=== PATIENT | male | born 1960 | race Caucasian/White ===

== ENCOUNTER 2017-12-01 10:30 | Emergency (ER) | payer BC ==
--- NOTE | 2017-12-02 09:11 | EDM.PDOC ---
Scribed by Yari Sow 12/02/17 0911 for Zion Forte MD ED HPI GENERAL MEDICAL PROBLEM - General Chief Complaint: ENT Problem Stated Complaint: SINUS INFECTION Time Seen by Provider: 12/01/17 10:45 Source of Information: Reports: Patient, RN, RN Notes Reviewed History Limitations: Reports: No Limitations - History of Present Illness INITIAL COMMENTS - FREE TEXT/NARRATIVE: c/o "sinus infection". Pt reports sinus pressure with intermittent drainage for about 12 weeks, but has felt like a 'sinus infection' for about one week. Denies fever or chills. Onset: Gradual Duration: Constant, Getting Worse Location: Reports: Head, Face Quality: Reports: Pressure Severity: Moderate Improves with: Reports: None Worsens with: Reports: None Associated Symptoms: Reports: No Other Symptoms Head Pain Score (Numeric/FACES): 5 - Related Data Allergies Allergy/AdvReac Type Severity Reaction Status Date / Time No Known Allergies Allergy Verified 12/01/17 10:41 Home Meds: Home Meds Thyroid,Pork [[place] Thyroid] 1 tab PO BID 12/01/17 [History] Past Medical History - Past Health History Medical/Surgical History: Denies Medical/Surgical History Social & Family History - Family History Family Medical History: Noncontributory - Living Situation & Occupation Living situation: Reports: , with Spouse Occupation: Employed ED ROS ENT - Review of Systems Review Of Systems: ROS reveals no pertinent complaints other than HPI. ED EXAM, ENT - Physical Exam Exam: See Below Exam Limited By: No Limitations General Appearance: Alert, WD/WN, No Apparent Distress Eye Exam: Bilateral Eye: Normal Inspection Ears: Normal External Exam, Normal Canal, TM Fluid (clear). No: Mastoid Tenderness, Canal Blood, Canal Discharge, Canal Swelling, TM Bulging, TM Dullness, TM Erythema, TM Blood, TM Perforation Nose: Nasal Discharge (clear and purulent), Nasal Swelling, Injected Turbinates. No: Active Bleeding Mouth/Throat: Normal Inspection, Normal Gums, Normal Lips, Normal Oropharynx ( with postnasal drip), Normal Teeth Head: Atraumatic, Normocephalic Neck: Normal Inspection, Supple, Non-Tender, Full Range of Motion. No: Lymphadenopathy (L), Lymphadenopathy (R) Respiratory/Chest: No Respiratory Distress, Lungs Clear, Normal Breath Sounds, No Accessory Muscle Use, Chest Non-Tender Cardiovascular: Regular Rate, Rhythm Neurological: Alert, Oriented, CN II-XII Intact, Normal Cognition, Normal Gait, No Motor/Sensory Deficits Psychiatric: Normal Affect, Normal Mood Skin: Warm, Dry, Intact, Normal Color, No Rash Course - Vital Signs Last Recorded V/S: Last Vital Signs Temp 37.1 C 12/01/17 10:38 Pulse 99 12/01/17 10:38 Resp 16 12/01/17 10:38 BP 141/78 H 12/01/17 10:38 Pulse Ox 99 12/01/17 10:38 Departure - Departure Time of Disposition: 11:02 Disposition: Home, Self-Care 01 Condition: Good Clinical Impression: Sinusitis - Discharge Information Instructions: Sinusitis, Adult, [id number] Referrals: Homar Guzmán MD [Primary Care Provider] - Forms: ED Department Discharge Additional Instructions: RX: Augmentin [id number]. Over the counter Claritin D-24 hour or Zyrtec-D one tablet daily as needed. Follow up in clinic if not improving in 5 to 7 days. I have read and agree with the documentation that has been completed regarding this visit. By signing this record, I attest that the documentation was completed in my physical presence and is an accurate record of the encounter.
== END 2017-12-01 11:28 | disposition home or self-care (01) ==
LOC: DL.ED 10:30
DX: J32.9 Chronic sinusitis, unspecified (principal)
CPT/HCPCS: 99283